=== PATIENT | male | born 1955 | race Caucasian/White ===

== ENCOUNTER 2018-06-03 14:37 | Inpatient (IN) | payer OTHER ==
[2018-06-03] MEDS ORDERED: ASPIRIN 81 MG CHEWABLE TAB PO ONE (14:48)
[2018-06-03] MEDS ORDERED: NS 500 ML IV ONE (14:48)
--- NOTE | 2018-06-03 15:04 | EDPHY ---
H & P Time Seen by Provider: 06/03/18 14:48 HPI/ROS: HPI Chest pain. 62-year-old male by private vehicle with his . This patient reports that he has had intermittent chest pain associated with exertion and high altitude over at least the last couple of weeks. He was seen by his primary care physician a week ago for this complaint. He is scheduled for provocative testing through Cardiology on July 15. He states that he was up at his [place] with his near the [facility] [place], [place], he reports that at this time he became short of breath and developed chest pain which she describes as a tightness and squeezing across his anterior chest. He reports that when he came down to altitude and got to the hospital this discomfort resolved. He denies any chest pain currently. Cardiac risk factors include age and hyperlipidemia. He denies any shortness of breath at this time. ROS: Constitutional: No fever, no chills. No weakness. Eyes: No discharge. No changes in vision. ENT: No sore throat. No nasal congestion or rhinorrhea. Respiratory: No cough. As above. Cardiac: As above, no palpitations. Gastrointestinal: No abdominal pain, no vomiting, no diarrhea. Genitourinary: No hematuria. No dysuria or increased frequency with urination. Musculoskeletal: No back pain. No neck pain. No myalgias or arthralgias. Skin: No rashes. Neurological: No headache. No focal weakness or altered sensation. Past medical history: Hyperthyroid, anxiety, hyperlipidemia. Medications include Lipitor and propranolol. Social history: Nonsmoker. No alcohol. Nonsmoker. Here with his . Physical Exam: General Appearance: Alert, no distress. This patient is responding to questions appropriately and in full sentences. This patient appears well- hydrated and well-nourished. Eyes: Pupils equal and round no pallor or injection. No lid edema, erythema or injection. Respiratory: There are no retractions, lungs are clear to auscultation with good air movement bilaterally. Cardiovascular: Regular rate and rhythm. No murmur. Gastrointestinal: Abdomen is soft and nontender, no masses, bowel sounds normal. No focal tenderness at McBurney's point. No Ramírez sign. Neurological: Motor sensory function is grossly intact. Cranial nerves are normal. Gait is normal. Skin: Warm and dry, no rashes. Musculoskeletal: Neck is supple and nontender. Extremities are symmetrical. All joints range without pain or impingement. Psychiatric: No agitation. No depression. Database: EKG: EKG time is 2:52 p.m.; EKG shows a narrow complex sinus rhythm with underlying right bundle branch block and ventricular rate of 60. The [place], QT intervals are within normal limits. There are no ST-T wave changes indicative of ischemic or injury pattern. No evidence of right heart strain. Interpreted by me. Imaging: Chest x-ray AP portable; the cardiac mediastinal silhouette is unremarkable. No evidence of infiltrate or pneumothorax. No acute cardiopulmonary disease process noted. Interpreted by me. Patient's presentation is concerning. I discussed admission for observation and further testing overnight. Both he and his endorse. Procedures: Emergency department course: Triage vital signs reviewed and are unremarkable. IV placed. He was placed on a cafeteria monitor. He was given 324 mg of chewed aspirin. EKG obtained and reviewed by myself. 3:30 p.m., patient re-evaluated, he remains comfortable. Results of diagnostic workup discussed with him and his . Plan for observation admission reviewed. They both endorse. Hospitalist paged. 3:35 p.m., spoke with on-call hospitalist, Dr. Colunga. Case discussed in detail with her. She accepts this patient for admission to telemetry observation. The patient's remaining emergency department course under my care has been uneventful. The patient was admitted in stable condition. Differential Diagnosis: The differential diagnosis on this patient includes but is not limited to angina , anxiety reaction, esophageal spasm. This represents a partial list of diagnoses considered. These considerations are based on history, physical exam , past history, reassessment and diagnostic testing. Smoking Status: Never smoked Constitutional: Initial Vital Signs Temperature (C) 36.8 C 06/03/18 14:44 Heart Rate 68 06/03/18 14:44 Respiratory Rate 16 06/03/18 14:44 Blood Pressure 134/70 H 06/03/18 14:44 O2 Sat (%) 96 06/03/18 14:44 O2 Delivery Mode Room Air Allergies/Adverse Reactions: No Known Allergies Allergy (Verified 06/03/18 14:43) Home Medications: Medication Instructions Recorded Lipitor 06/03/18 Propranolol Sr 06/03/18 Medical Decision Making - Diagnostics Imaging Results: Imaging Impressions Chest X-Ray 06/03/18 14:48 Impression: Nothing acute identified. - Data Points Laboratory Results: Laboratory Results 06/03/18 15:04 06/03/18 15:04 06/03/18 06/03/18 06/03/18 15:04 15:04 15:04 WBC 8.65 10^3/uL 10^3/uL (3.80-9.50) RBC 4.53 10^6/uL 10^6/uL (4.40-6.38) Hgb 13.9 g/dL g/dL (13.7-17.5) Hct 39.8 % L % (40.0-51.0) MCV 87.9 fL fL (81.5-99.8) MCH 30.7 pg pg (27.9-34.1) MCHC 34.9 g/dL g/dL (32.4-36.7) RDW 11.9 % % (11.5-15.2) Plt Count 263 10^3/uL 10^3/uL (150-400) MPV 9.4 fL fL (8.7-11.7) Neut % (Auto) 57.9 % % (39.3-74.2) Lymph % (Auto) 32.7 % % (15.0-45.0) Dickey % (Auto) 7.5 % % (4.5-13.0) Eos % (Auto) 0.9 % % (0.6-7.6) Baso % (Auto) 0.5 % % (0.3-1.7) Nucleat RBC Rel Count 0.0 % % (0.0-0.2) Absolute Neuts (auto) 5.01 10^3/uL 10^3/uL (1.70-6.50) Absolute Lymphs (auto) 2.83 10^3/uL 10^3/uL (1.00-3.00) Absolute Monos (auto) 0.65 10^3/uL 10^3/uL (0.30-0.80) Absolute Eos (auto) 0.08 10^3/uL 10^3/uL (0.03-0.40) Absolute Basos (auto) 0.04 10^3/uL 10^3/uL (0.02-0.10) Absolute Nucleated RBC 0.00 10^3/uL 10^3/uL (0-0.01) Immature Gran % 0.5 % % (0.0-1.1) Immature Gran # 0.04 10^3/uL 10^3/uL (0.00-0.10) PT 13.7 SEC SEC (12.0-15.0) INR 1.03 (0.83-1.16) APTT 26.1 SEC SEC (23.0-38.0) Sodium 137 mEq/L mEq/L (135-145) Potassium 3.8 mEq/L mEq/L (3.5-5.2) Chloride 105 mEq/L mEq/L (97-110) Carbon Dioxide 23 mEq/l mEq/l (22-31) Anion Gap 9 mEq/L mEq/L (6-14) BUN 23 mg/dL mg/dL (7-23) Creatinine 1.1 mg/dL mg/dL (0.7-1.3) Estimated GFR > 60 Glucose 100 mg/dL mg/dL (70-100) Calcium 9.6 mg/dL mg/dL (8.5-10.4) POC Troponin I 06/03/18 14:58 WBC RBC Hgb Hct MCV MCH MCHC RDW Plt Count MPV Neut % (Auto) Lymph % (Auto) Dickey % (Auto) Eos % (Auto) Baso % (Auto) Nucleat RBC Rel Count Absolute Neuts (auto) Absolute Lymphs (auto) Absolute Monos (auto) Absolute Eos (auto) Absolute Basos (auto) Absolute Nucleated RBC Immature Gran % Immature Gran # PT INR APTT Sodium Potassium Chloride Carbon Dioxide Anion Gap BUN Creatinine Estimated GFR Glucose Calcium POC Troponin I 0.00 ng/mL ng/mL (0.00-0.08) Medications Given: Discontinued Medications Aspirin (Aspirin) 324 mg PO EDNOW ONE Stop: 06/03/18 14:49 Last Admin: 06/03/18 15:05 Dose: 324 mg Sodium Chloride (Ns) 500 mls @ 1,000 mls/hr IV EDNOW ONE PRN Reason: Protocol Stop: 06/03/18 15:17 Last Admin: 06/03/18 15:05 Dose: 500 mls Point of Care Test Results: Chemistry 06/03/18 14:58 POC Troponin I 0.00 ng/mL ng/mL (0.00-0.08) Departure - Departure Disposition: [facility] Inpatient Acute Clinical Impression: Chest pain Referrals: Debbie Conner MD [Primary Care Provider] - As per Instructions
[2018-06-03 15:14] LABS: PLATELET COUNT 263 10^3/uL (150-400)
[2018-06-03 15:24] LABS: INR 1.03 (0.83-1.16); PROTIME(PATIENT) 13.7 SEC (12.0-15.0)
[2018-06-03] MEDS ORDERED: PROPRANOLOL HCL 20 MG TAB PO SCH (17:45)
[2018-06-03] MEDS ORDERED: NITROGLYCERIN 0.4 MG BTL SL PRN (17:56)
[2018-06-03] MEDS ORDERED: ACETAMINOPHEN 325 MG TAB PO PRN (17:56)
--- NOTE | 2018-06-03 18:10 | PDGENHP ---
History and Physical History and Physical: Chief complaint: Chest pain History of present illness: The patient is a 62-year-old male who presented with chest pain which started about 2 months ago. However in the last 2 days the chest pain has been worsening. Today, the patient was up at [facility] and felt the discomfort was severe enough to come to the hospital. He had been scheduled for an outpatient stress test on June 16. Chest pain is located in the middle of his chest and upper abdomen. Chest pain is described as pressure-like discomfort. Severity of chest pain ranges from 2 to 7/10. Symptoms are alleviated by rest and belching. Symptoms are exacerbated with high altitude and heavy exertion, such as heavy lifting. He denies diaphoresis , radiation of pain, syncope, lightheadedness, nausea or vomiting, or new numbness. Past medical history: Obstructive sleep apnea on CPAP, hyperthyroid, broken neck Past surgical history: Neck surgery, hernia surgery, bone spur surgery Medications: Daily baby aspirin, vitamin D3, he citalopram 20 mg daily, pravastatin 10 mg at night, propranolol 20 mg daily. Allergies: No known allergies. Social history: Denies smoking or drug use. Consumes up to 4 alcohol servings a week. , lives with spouse. Occupation-architectural design. Family history: Healthy. Review of systems: 10 point review of systems was conducted and is negative except per HPI Physical exam: Vitals: Reviewed General: The patient is a male who is A&Ox3 and in no acute distress. HEENT: normocephalic, extraocular movements intact, conjunctivae clear. Nares and oral mucosa pink and moist. Neck: trachea midline, no visible masses, no external lesions. CV: +S1/S2, reg rate and rhythm. No murmurs/rubs/gallops. Nontender chest wall. Resp: unlabored breathing, lungs clear to auscultation w/o rales, rhonchi, or wheezing. Abd: soft and nondistended, bowel sounds present. Nontender to palpation throughout. Musculoskeletal: Normal muscle tone and bulk. Neuro: cranial nerves II - XII grossly intact. Intact gross motor and sensory function. Psych: appropriate mood/affect. Skin: No rash or ecchymoses. : no suprapubic tenderness. Heme/lymph: No peripheral edema. Labs: WBC 8.65, hemoglobin 13.9, INR 1.03, sodium 137 potassium 3.8 chloride 105 CO2 23 BUN 23 creatinine 1.1 calcium 9.6. Troponin 0.00. Other Data: Chest x-ray one view-personally interpreted-no acute cardiopulmonary abnormality. EKG in ED (personally interpreted): Sinus rhythm , rate 60, right bundle branch block. EKG from office (outside record, personally interpreted) - SR, intraventricular conduction delay. Impression and plan: CP - DDx etiology - cardiac, GERD, MSK. RBBB - suspect to be new LUZMARIA on CPAP H/o hyperthyroidism HTN, mild HLD -Admit for observation. -prn analgesics, O2. -ASA given in ED. -Continue home meds. -Exercise stress test. -Trend troponins. -Recheck EKG later. -VTE ppx - ambulatory. -Code status - full.
[2018-06-03] MEDS: ASPIRIN EC 81 MG TAB PO SCH (20:14)
[2018-06-03] MEDS: PRAVASTATIN SODIUM 10 MG TAB PO SCH (20:14)
[2018-06-03] MEDS ORDERED: PROPRANOLOL HCL 10 MG TAB PO SCH (21:00)
--- NOTE | 2018-06-03 21:15 | CPEKG ---
Test Reason : OPEN Blood Pressure : / mmHG Vent. Rate : 060 BPM Atrial Rate : 060 BPM P-R Int : 172 ms QRS Dur : 157 ms QT Int : 448 ms P-R-T Axes : 044 032 013 degrees QTc Int : 448 ms Sinus rhythm Right bundle branch block Confirmed by Madhavi Kern ([id number]) on 06/03/2018 9:14:48 PM Referred By: Confirmed By:Madhavi Kern
--- NOTE | 2018-06-04 06:20 | CPEKG ---
Test Reason : OPEN Blood Pressure : / mmHG Vent. Rate : 057 BPM Atrial Rate : 057 BPM P-R Int : 175 ms QRS Dur : 155 ms QT Int : 439 ms P-R-T Axes : 039 022 -01 degrees QTc Int : 428 ms Sinus rhythm Right bundle branch block Confirmed by Jaleel Alcantara ([id number]) on 06/04/2018 6:19:57 AM Referred By: Confirmed By:Jaleel Alcantara
[2018-06-04] MEDS: OMEGA-3 FATTY ACIDS 1,000 MG CAP PO SCH (08:09)
[2018-06-04] MEDS: CHOLECALCIFEROL VIT D3 1,000 UNITS TAB PO SCH (08:09)
[2018-06-04] MEDS: ESCITALOPRAM OXALATE 10 MG TAB PO SCH (08:09)
[2018-06-04] MEDS ORDERED: PROPRANOLOL HCL 20 MG TAB PO SCH (09:00)
--- NOTE | 2018-06-04 15:00 | CPIP ---
DATE OF PROCEDURE: 06/04/2018 PROCEDURE PERFORMED: Exercise nuclear stress test. INDICATION: Chest pain. DESCRIPTION OF PROCEDURE: After an informed consent was obtained to undergo exercise nuclear stress test, patient exercised on a standard Juan protocol. Resting ECG prior to start of exercise demonst rated sinus rhythm at 59 beats per minute with right bundle branch block. Patient was able to exercise for a total of 10 minutes and 15 seconds on a standard Juan protocol. Peak heart rate of 145 beats per minute representing 91% of maximum predicted heart rate. He had no symptoms or ECG changes with exertion. At peak exertion, he was injected with sestamibi. Patient was able to exercise for an additional 45 seconds post-injection. After several minutes in the recovery phase, the patient states he had some mild substernal chest dis comfort. No ECG changes. IMPRESSION: 1. Negative exercise treadmill stress test with 10 minutes and 15 seconds of exercise without sympto ms on standard Juan protocol. No ECG changes. Appropriate hemodynamic response. 2. Nuclear imaging pending. /[id number]/MODL
--- NOTE | 2018-06-04 15:40 | HOSPPROG ---
Hospitalist Progress Note Assessment/Plan: Impression and plan: CP - DDx etiology - cardiac, GERD, MSK MPS showing uptake in Anterior Mediastinum RBBB - suspect to be new LUZMARIA on CPAP H/o hyperthyroidism HTN, mild HLD -MPS negative for ischemia today, although showed increased uptake in anterior mediastinum, concerning for neoplasm - CT Chest with IVC ordered for tonight to further evaluate - ASA continued -Continue home meds. -VTE ppx - ambulatory. -Code status - full. Subjective: Patient reports feeling dull sensation on R chest this afternoon Objective: Vital Signs Temp Pulse Resp BP Pulse Ox 36.8 C 60 18 122/75 H 94 06/04/18 12:04 06/04/18 12:04 06/04/18 12:04 06/04/18 12:04 06/04/18 12:04 06/03/18 06/04/18 06/05/18 05:59 05:59 05:59 Intake Total 500 Output Total 1 Balance 499 PT 13.7 SEC (12.0-15.0) 06/03/18 15:04 INR 1.03 (0.83-1.16) 06/03/18 15:04 - Physical Exam Constitutional: no apparent distress Eyes: PERRL Ears, Nose, Mouth, Throat: moist mucous membranes Cardiovascular: regular rate and rhythym Respiratory: no respiratory distress Gastrointestinal: normoactive bowel sounds Skin: warm Neurologic: AAOx3 Psychiatric: interacting appropriately ICD10 Worksheet Patient Problems: Problems Problem Status Onset Chest pain Acute
--- NOTE | 2018-06-04 16:05 | ASMTCMCOM ---
CM Note CM Note Notes: 06/04/2018 Case Management Nte Reviewed chart. Spoke with RN. Pt admitted for chest pain. There are no identified case management d/c needs d/t pt age, marital status, employment status and independence with ADL's prior to admission. There are no therapy evals ordered at this time. Case Management d/c poc: independent with follow up as directed. Case Management available if needs change. Date Signed: 06/04/2018 04:05 PM Electronically Signed By:Ophelia Redmond RN
[2018-06-04] MEDS ORDERED: IOPAMIDOL (ISOVUE-300) 100 ML BTL ONE (16:09)
--- NOTE | 2018-06-04 17:32 | PDMN ---
Medical Necessity Medical necessity: Change to inpt as of 06/04/18 @ 1545 per MD order and MCG M- 89, Chest pain. 62 y/o admitted w/chest pain, had MPS negative for ischemia but showed increased uptake in ant mediastinum, concerning for neoplasm, CT chest showed 2.6 cm ant mediastianal mass concerning for lymphoma vs thymoma, IR consult for bx in AM, upgraded to inpt for persistent chest pain/pressure, further diagnostic work-up needed.
[2018-06-04] MEDS: PRAVASTATIN SODIUM 10 MG TAB PO SCH (20:42)
[2018-06-04] MEDS: ASPIRIN EC 81 MG TAB PO SCH (20:42)
[2018-06-04] MEDS ORDERED: ZOLPIDEM TARTRATE 5 MG TAB PO PRN (21:25)
[2018-06-05 09:58] LABS: INR 1.01 (0.83-1.16); PROTIME(PATIENT) 13.5 SEC (12.0-15.0)
[2018-06-05] MEDS ORDERED: MIDAZOLAM 2 MG/2 ML VIAL IVP PRN (11:20)
[2018-06-05] MEDS ORDERED: PROTAMINE SULFATE 50 MG/5 ML VIAL IVP PRN (11:20)
[2018-06-05] MEDS ORDERED: NALOXONE HCL 0.4 MG/ML INJ IVP PRN (11:20)
[2018-06-05] MEDS ORDERED: ALTEPLASE 2 MG VIAL IVP PRN (11:20)
[2018-06-05] MEDS ORDERED: HEPARIN 10,000 UNIT/10 ML MDV (1,000 UNIT/ML) IVP PRN (11:20)
[2018-06-05] MEDS ORDERED: fentaNYL 100 MCG/2 ML INJ IVP PRN (11:20)
[2018-06-05] MEDS ORDERED: FLUMAZENIL 0.5 MG/5 ML MDV IVP PRN (11:20)
[2018-06-05] MEDS ORDERED: GLUCAGON HCL 1 MG VIAL IVP PRN (11:20)
[2018-06-05] MEDS ORDERED: NS 1,000 ML IV SCH (11:30)
[2018-06-05] MEDS ORDERED: LIDOCAINE 1% 300 MG/30 ML SDV ONE (11:41)
--- NOTE | 2018-06-05 14:19 | PDPROPOC ---
Sedation Plan of Care Sedation Plan of Care: vital signs stable, mental status noted, patient educated of risks, benefits, alternatives, patient can tolerate sedation ASA Classification: ASA 3 Planned drugs: fentanyl, midazolam Mallampati Score: Class 3 Mallampati Reference Image: Patient passed 3-3-2 rule?: Yes
--- NOTE | 2018-06-05 14:21 | PDRADPN ---
Radiology Procedure Note Date of Procedure: 06/05/18 Radiologist: Pauline Francis Anesthesia: IV Sedation Pre-op Diagnosis: mediastinal mass Post-op Diagnosis: same Indication: incidental mediastinal mass Procedure: CT guided bx Finding(s): robery, hard mass Inf/Abcess present in the surg proc area at time of surgery?: No
[2018-06-05 16:04] VITALS: BP 119/71
[2018-06-05] MEDS: CHOLECALCIFEROL VIT D3 1,000 UNITS TAB PO SCH (16:59)
[2018-06-05] MEDS: ESCITALOPRAM OXALATE 10 MG TAB PO SCH (16:59)
[2018-06-05] MEDS: OMEGA-3 FATTY ACIDS 1,000 MG CAP PO SCH (17:00)
--- NOTE | 2018-06-05 17:00 | PDDCSUM ---
Discharge Summary Discharge Summary: Amaury Clemons is a 62 year old male admitted with chest pain. he was evaluated with a stress test that coincidentally revealed a 2.6 cm mass in his anterior mediastinum that was concern for thymoma vs malignancy. He underwent a IR guided biopsy which he tolerated well. He was discharged home to follow up with his PCP to evaluate the results of pathology and determine the next steps. Disposition- Home Follow up - pathology results from IR guided biopsy. Medications- resume all home medications Activity- as tolerated.
--- NOTE | 2018-06-05 17:01 | HOSPPROG ---
Hospitalist Progress Note Assessment/Plan: CP - DDx etiology - cardiac, GERD, MSK MPS showing uptake in Anterior Mediastinum, biopsy today RBBB - suspect to be new LUZMARIA on CPAP H/o hyperthyroidism HTN, mild HLD -MPS negative for ischemia today, although showed increased uptake in anterior mediastinum, concerning for neoplasm - CT Chest with IVC ordered for tonight to further evaluate - ASA continued -Continue home meds. -VTE ppx - ambulatory. -Code status - full. Subjective: no longer with chest pain. some pain from biopsy. no sob, nv or other symptoms. Objective: Vital Signs Temp Pulse Resp BP Pulse Ox 36.7 C 77 18 119/71 95 06/05/18 16:00 06/05/18 16:00 06/05/18 16:00 06/05/18 16:00 06/05/18 16:00 06/04/18 06/05/18 06/06/18 05:59 05:59 05:59 Intake Total 1400 1000 Balance 1400 1000 PT 13.5 SEC (12.0-15.0) 06/05/18 09:10 INR 1.01 (0.83-1.16) 06/05/18 09:10 - Physical Exam Constitutional: no apparent distress, appears nourished, not in pain Eyes: PERRL, anicteric sclera, EOMI Ears, Nose, Mouth, Throat: moist mucous membranes, hearing normal, ears appear normal, no oral mucosal ulcers Cardiovascular: regular rate and rhythym, no murmur, rub, or gallop Respiratory: no respiratory distress, no rales or rhonchi, clear to auscultation Gastrointestinal: normoactive bowel sounds, soft, non-tender abdomen, no palpable masses Genitourinary: no bladder fullness, no bladder tenderness, no renal bruits Skin: no rashes or abrasions, no fluctuance, no induration Musculoskeletal: full muscle strength, no muscle tenderness, normal joint ROM Neurologic: AAOx3, sensation intact bilaterally Psychiatric: interacting appropriately, not anxious, not encephalopathic, thought process linear Lymph, Heme, Immunologic: no cervical LAD, no supraclavicular LAD ICD10 Worksheet Patient Problems: Problems Problem Status Onset Chest pain Acute
== END 2018-06-05 17:38 | disposition home or self-care (01) | DRG 264 ==
LOC: F2W 15:30 → OBSVTOIN 06-04 15:45
PROVIDERS: ADMIT Internal Medicine; ATTEND Internal Medicine
PROC: 0WBC0ZX Excision of Mediastinum, Open Approach, Diagnostic (ICD-10-PCS; principal; 2018-06-05 14:06)
PROC: BW241ZZ Computerized Tomography (CT Scan) of Chest and Abdomen using Low Osmolar Contrast (ICD-10-PCS; principal; 2018-06-05 14:06)
DX: R07.89 Other chest pain (principal); R22.2 Localized swelling, mass and lump, trunk; I31.3 Pericardial effusion (noninflammatory); E78.5 Hyperlipidemia, unspecified; F41.9 Anxiety disorder, unspecified; G47.33 Obstructive sleep apnea (adult) (pediatric); E05.90 Thyrotoxicosis, unspecified without thyrotoxic crisis or storm; I10 Essential (primary) hypertension; I45.10 Unspecified right bundle-branch block; E86.0 Dehydration
CPT/HCPCS: 84484-ER; 88184-90; 88185-91; A9500; G0378; J2250; J2310; J3010; Q9967